=== PATIENT | male | born 1990 | race African-American/Black ===

== ENCOUNTER 2022-07-14 20:28 | Emergency (ER) | payer BC, OTHER ==
[2022-07-14] MEDS ORDERED: Amoxicillin/Clavulanate K 875-125 MG Tab PO ONE (21:35)
== END 2022-07-14 21:56 | disposition home or self-care (01) ==
LOC: MW.ED 20:28
DX: S61.051A Open bite of right thumb without damage to nail, initial encounter (principal); L08.9 Local infection of the skin and subcutaneous tissue, unspecified; Z88.8 Allergy status to other drugs, medicaments and biological substances; Z91.013 Allergy to seafood; W54.0XXA Bitten by dog, initial encounter
CPT/HCPCS: 99283; A9270